=== PATIENT | female | born 2000 | race African-American/Black ===

== ENCOUNTER 2022-10-06 14:41 | Emergency (ER) | payer OTHER ==
[2022-10-06 15:38] VITALS: BP 115/62; PULSE 85; RESP 18; TEMP 98.1; BMI 27.3
[2022-10-06 16:52] LABS: PH,URINE 5.5 (5.0-8.0); URINE APPEARANCE CLEAR; URINE BILIRUBIN NEGATIVE (NEGATIVE); URINE COLOR YELLOW; URINE GLUCOSE (UA) NEGATIVE (NEGATIVE); URINE KETONE NEGATIVE (NEGATIVE); URINE LEUK ESTERASE NEGATIVE (NEGATIVE); URINE NITRITE NEGATIVE (NEGATIVE); URINE PROTEIN NEGATIVE (NEGATIVE); URINE UROBILINOGEN 0.2 mg/dL (0.2-1.0)
== END 2022-10-06 18:53 | disposition left against medical advice (07) ==
LOC: JER 14:41 → JERFT 14:41
DX: R10.9 Unspecified abdominal pain (principal)
CPT/HCPCS: 81003; 87086; 99283-25